=== PATIENT | female | born 1960 | race Caucasian/White ===

== ENCOUNTER 2022-01-09 09:37 | Inpatient (IN) | payer BC ==
[2022-01-03 16:58] LABS: BASOPHILS % (AUTO) 0.5 % (0-1); EOSINOPHILS # (AUTO) 0.1 X10'3 (0-0.9); EOSINOPHILS % (AUTO) 1.6 % (0-6); LYMPHOCYTES # (AUTO) 1.9 X10'3 (1.1-4.8); LYMPHOCYTES % (AUTO) 26.5 % (21-51); MEAN CORPUSCULAR HEMOGLOBIN 30.6 PG (27.0-31.0); MEAN CORPUSCULAR HGB CONC 33.9 g/dL (33.0-36.5); MEAN CORPUSCULAR VOLUME 90.4 FL (78-98); MEAN PLATELET VOLUME 8.7 FL (7.4-10.4); MONOCYTES # (AUTO) 0.8 X10'3 (0-0.9); MONOCYTES % (AUTO) 10.4 % (2-12); NEUTROPHILS # (AUTO) 4.5 X10'3 (1.8-7.7); PRE OP HEMATOCRIT 38.5 % (35.0-45.0); PRE OP HEMOGLOBIN 13.1 g/dL (12.0-16.0); PRE OP PLATELET COUNT 323 X10'3 (140-440); RED BLOOD COUNT 4.26 X10'6 (4.20-5.60)
[2022-01-03 17:21] LABS: ALBUMIN 3.5 G/DL (3.4-5.0); ALKALINE PHOSPHATASE 68 IU/L (46-116); BLOOD UREA NITROGEN 24 MG/DL (7-18); BUN/CREATININE RATIO 30.4 (6.6-38.0); CALCIUM 9.1 MG/DL (8.5-10.1); CHLORIDE 107 MMOL/L (99-107); CREATININE 0.79 MG/DL (0.40-0.90); PRE OP ALT 21 U/L (30-65); PRE OP ANION GAP 7 (8-16); PRE OP AST 18 U/L (10-37); PRE OP BILIRUB, TOTAL 0.7 MG/DL (0.0-1.0); PRE OP GLUCOSE 89 MG/DL (70-104); PRE OP POTASSIUM 3.8 MMOL/L (3.4-5.1); PRE OP SODIUM 142 MMOL/L (135-145); TOTAL CARBON DIOXIDE 28.1 MMOL/L (24-32); eGFR 74 ML/MIN
[~2022-01-09] VITALS: Ht 154.9 cm; Wt 82.4 kg
[2022-01-09] VITALS (10 sets, daily range): BP systolic 95–114; BP diastolic 51–71
[2022-01-09] MEDS: ascorbic acid 500mg tablet PO SCH ×2 (08:00→21:45)
[2022-01-09] MEDS: multivitamins, therapeutics tablet PO SCH (08:00)
[2022-01-09] MEDS: montelukast 10mg tablet PO SCH (08:00)
[2022-01-09] MEDS: gabapentin 300mg capsule PO SCH ×3 (08:00→21:44)
[2022-01-09] MEDS: levoTHYROXINE 100mcg tablet PO SCH (08:00)
[2022-01-09] MEDS: aspirin 325mg tablet PO SCH (08:30)
[~2022-01-09 09:37] MED LIST: BIOT5000 PO; DOCUMENT DATE & TIME OF BETA-BLOCKER PO ONE; HYDROmorphone 1 mg/ml syringe IV PRN; HYDROmorphone inj. 0.5 MG/0.5 ML DISP.SYRIN IV PRN; LEVO100T9 PO; METO-395 PO; MONT-40 PO; ROPIVAcaine 0.5% (5mg/ml) 30ml vial ONE; [UNRECOGNIZED DRUG - OTHER]; [UNRECOGNIZED DRUG - REMARK]; acetaminophen 325mg tablet PO PRN; bisacodyl 10mg suppository rectal RC PRN; clindamycin-Cleocin 900mg/D5W 50 ML IV ONE; cloNIDine hcl/PF 100mcg/ml inj ONE; diphenhydrAMINE 25mg capsule PO PRN; epiNEPHrine 1 mg/ml inj ONE; famotidine 20mg tablet PO ONE; ketorolac trometh. 30mg/ml inj. ONE; magnesium hydroxide 30ml (MOM) UD suspension PO PRN; naloxone 0.4 mg/ml inj IV PRN; ondansetron/PF 4mg/2ml inj IV PRN; oxyCODONE SR 10mg (sust. release) tab -2 tabs (20mg) PO ONE; oxyCODONE/APAP 10/325mg tablet PO PRN; ringers solution, lacted 1,000 ML IV SCH; tranexamic acid 100mg/ml inj. ONE; vancomycin 1,000mg inj ONE; vancomycin 1,500 MG in NS 300ml IV soln IV ONE
--- NOTE | 2022-01-09 10:30 | NUR ---
CSM: PULSES PRESENT AND MARKED. PATIENT STATES SHE READ THE PAMPHLET AND WATCHED THE VIDEO. SHE STATES SHE DOES NOT KNOW ABOUT THE MUPIROCIN OINTMENT. EDUCATED PATIENT ON THE USE OF THE INCENTIVE SPIROMETER AND ITS IMPORTANCE.
[2022-01-09] MEDS ORDERED: morphine 2 MG/ML inj. syringe IV PRN (12:40)
[2022-01-09] MEDS ORDERED: proCHLORperazine 10 MG/2 ml inj IV PRN (12:40)
[2022-01-09] MEDS ORDERED: ondansetron/PF 4mg/2ml inj IV PRN (12:40)
[2022-01-09] MEDS ORDERED: ringers solution, lacted 1,000 ML IV SCH (12:40)
[2022-01-09] MEDS ORDERED: ROPIVAcaine 0.2% (10 MG/5 ML) BOLUS INJECTION ADDCANAL PRN (12:40)
[2022-01-09] MEDS ORDERED: ROPIVAcaine 0.2%/PF PUMP/bolus 545 ML ADDCANAL SCH (12:40)
[2022-01-09] MEDS ORDERED: morphine 4 MG/ML inj SYRINge IV PRN (12:40)
[2022-01-09] MEDS ORDERED: meperidine/PF 25mg/ml syringe IV PRN ×3 (12:40)
[2022-01-09] MEDS ORDERED: ROPIVAcaine 0.5% (5mg/ml) 30ml vial ONE (13:53)
[2022-01-09] MEDS ORDERED: fentaNYL/PF 50MCG/1 ML 2ML syringe ONE (13:55)
[2022-01-09] MEDS ORDERED: MIDAZolam 1 MG/ML 5ML VIAL ONE (13:55)
[2022-01-09] MEDS: potassium cl 20mEq in 1/2 NS 1,000 ML IV SCH ×3 (15:00→22:09)
--- NOTE | 2022-01-09 16:10 | NUR ---
Received from OR via , accompanied by Anesthesiologist and report given by Anesthesiolgist. PATIENT WAKING UP, DENIES PAIN, V/S WNL, SCD ON 20G PIV TO LUE, NEUROVASCULAR CHECKS INTACT. LEFT KNEE WRAP LYSSA DRESSING CDI WITH COLD PACK. ONQ AT 2ML/HR LEFT KNEE
--- NOTE | 2022-01-09 16:40 | NUR ---
Patient in room ORTHO 4012B. I have received report from CAROLINA HAGEN FROM [facility] and had the opportunity to ask questions and assume patient care.
--- NOTE | 2022-01-09 17:00 | NUR ---
PATIENT WAKING UP, DENIES PAIN, V/S WNL, SCD ON 20G PIV TO LUE, NEUROVASCULAR CHECKS INTACT. LEFT KNEE WRAP LYSSA DRESSING CDI WITH COLD PACK. ONQ AT 2ML/HR LEFT KNEE PATIENT TAKEN TO 4012B WITH ALL BELONGINGS AND HOOKED UP TO MONITORS IN ROOM AND REPORT GIVEN TO RN WHO HAS TAKEN OVER PATIENT CARE.
--- NOTE | 2022-01-09 18:10 | NUR ---
Patient in room ORTHO 4012. I have received report from Marni Olson and had the opportunity to ask questions and assume patient care. Addendum: 01/09/22 at 2332 by Ansley Rosenberg RN Amended: Links added.
--- NOTE | 2022-01-09 18:50 | NUR ---
Patient in room ORTHO 4012. I have received report from Marni Olson and had the opportunity to ask questions and assume patient care.
--- NOTE | 2022-01-09 18:50 | NUR ---
Pt. awake A & O at this time with c/o pain of 8/10 on the pain scale; medicated as ordered. Absent seizure episode noted without injury- pt. back to normal self and was able to take his medicine without incident. Bed rails padded for safety and bed in low position. Call light within reach. Addendum: 01/10/22 at 0642 by Ansley Rosenberg RN Amended: Links added. Addendum: 01/10/22 at 0643 by Ansley Rosenberg RN Omit the note-Wrong pt.
--- NOTE | 2022-01-09 18:58 | NUR ---
Problems reprioritized. Patient report given, questions answered & plan of care reviewed with CAROLINA ESCUDERO.
[2022-01-09] MEDS ORDERED: VANCOMYCIN 1,500MG inj. 1,500 MG in normal saline 250ml IV soln 300 ML IV ONE (20:00)
[2022-01-09] MEDS ORDERED: sennosides 8.6mg tablet PO SCH (21:00)
--- NOTE | 2022-01-09 21:35 | NUR ---
Pt. awake A & O with c/o minimal pain of 4/10 on the pain scale level; encouraged pt. to press the ON/ Q button which pt. was able to demonstrated understanding. Lt knee drsg CDI and CMS present at this time.Call light within reach and bed in low position. Addendum: 01/10/22 at 0657 by Ansley Rosenberg RN Amended: Links added.
[2022-01-09] MEDS: oxyCODONE/APAP 10/325mg tablet PO PRN (22:05)
[2022-01-10] VITALS: BP 101/53
[2022-01-10] MEDS: cefazolin/dext.iso 2gm/100ml 100 ML IV SCH ×2 (00:47→00:51)
[2022-01-10 02:00] VITALS: BP 95/53
[2022-01-10 06:00] VITALS: BP 98/51
--- NOTE | 2022-01-10 06:00 | NUR ---
Problems reprioritized. Patient report given, questions answered & plan of care reviewed with Marni Morales RN. Addendum: 01/10/22 at 0703 by Ansley Rosenberg RN Amended: Links added.
[2022-01-10 06:29] LABS: BASOPHILS % (AUTO) 0.3 % (0-1); EOSINOPHILS % (AUTO) 0 % (0-6); HEMATOCRIT 32.8 % (35.0-45.0); LYMPHOCYTES # (AUTO) 1.2 X10'3 (1.1-4.8); LYMPHOCYTES % (AUTO) 13.4 % (21-51); MEAN CORPUSCULAR HEMOGLOBIN 30.1 PG (27.0-31.0); MEAN CORPUSCULAR HGB CONC 33.4 g/dL (33.0-36.5); MEAN CORPUSCULAR VOLUME 90.1 FL (78-98); MEAN PLATELET VOLUME 9.5 FL (7.4-10.4); MONOCYTES # (AUTO) 0.8 X10'3 (0-0.9); MONOCYTES % (AUTO) 9.1 % (2-12); NEUTROPHILS % (AUTO) 77.2 % (42-75); PLATELET COUNT 247 X10'3 (140-440); RED BLOOD COUNT 3.64 X10'6 (4.20-5.60); RED CELL DISTRIBUTION WIDTH 13.7 % (11.5-14.5)
--- NOTE | 2022-01-10 06:29 | NUR ---
Patient in room ORTHO 4012. I have received report from Ansley FIGUEROA and had the opportunity to ask questions and assume patient care.
[2022-01-10 06:54] LABS: ANION GAP 9 (8-16); CHLORIDE 108 MMOL/L (99-107); POTASSIUM 4.4 MMOL/L (3.5-5.1); SODIUM 143 MMOL/L (135-145); TOTAL CARBON DIOXIDE 26.3 MMOL/L (24-32)
[2022-01-10] MEDS: oxyCODONE/APAP 10/325mg tablet PO PRN ×3 (06:55→14:21)
[2022-01-10] MEDS: potassium cl 20mEq in 1/2 NS 1,000 ML IV SCH ×2 (07:00→15:00)
[2022-01-10] MEDS: montelukast 10mg tablet PO SCH (07:05)
[2022-01-10] MEDS: ascorbic acid 500mg tablet PO SCH (07:06)
[2022-01-10] MEDS: multivitamins, therapeutics tablet PO SCH (07:06)
[2022-01-10] MEDS: levoTHYROXINE 100mcg tablet PO SCH (07:06)
[2022-01-10] MEDS: gabapentin 300mg capsule PO SCH ×2 (07:06→13:12)
--- NOTE | 2022-01-10 07:46 | NUR ---
Spoke to MD regarding aspirin as patient has had bariatric surgery and is not supposed to take aspirin and is on lovenox at home, patient is to get lovenox. MD to put in order
[2022-01-10] MEDS ORDERED: celeCOXIB 100mg capsule PO SCH ×2 (08:00→20:00)
[2022-01-10] MEDS ORDERED: metoprolol succinate 25mg (24-HOUR) SR. Tablet PO SCH (08:00)
[2022-01-10] MEDS: aspirin 325mg tablet PO SCH (08:30)
--- NOTE | 2022-01-10 09:39 | NUR ---
I xiao RN agree with CORBY Aguilera
[2022-01-10 10:00] VITALS: BP 101/58
--- NOTE | 2022-01-10 12:13 | NUR ---
Noted pt s/p left TKA. Written protein education with RD contact information placed in patient's chart. Pt currently eating well, documented with 75-100% PO intake on regular diet. Will remain available. Addendum: 01/10/22 at [address] Amended: Links added.
--- NOTE | 2022-01-10 13:34 | NUR ---
PATIENT AMBULATING WITH PT TO DO STAIRS
--- NOTE | 2022-01-10 13:34 | NUR ---
ORDERS WERE NOT PUT IN FOR LOVENOX DUE TO PATIENTS CONFLICT WITH ASPIRIN, CALLED MD FOR ORDERS. NO ANSWER, MESSAGE WAS LEFT.
[2022-01-10 14:00] VITALS: BP 93/52
[2022-01-10] MEDS ORDERED: enoxaparin 40mg/0.4ml syringe SUBCUT SCH (14:15)
--- NOTE | 2022-01-10 16:20 | NUR ---
Patient dc home with spouse. Discharge information was discussed with patient who verbalize understanding and was assisted to personal vehicle with belongings.
[2022-01-10] MEDS ORDERED: TRANEXAMIC ACID IV ONE (18:47)
[2022-01-10] MEDS ORDERED: NORMAL SALINE IV ONE (18:47)
== END 2022-01-10 15:45 | disposition home or self-care (01) | DRG 470 ==
LOC: PAS 09:37 → ORTHO 4S 09:38 → UNDOADMIN 17:22 → ORTHO 4S 17:22
PROVIDERS: ADMIT Orthopaedic Surgery; ATTEND Orthopaedic Surgery
PROC: 3E0T3BZ Introduction of Anesthetic Agent into Peripheral Nerves and Plexi, Percutaneous Approach (ICD-10-PCS; 2022-01-09)
PROC: 0SRD0J9 Replacement of Left Knee Joint with Synthetic Substitute, Cemented, Open Approach (ICD-10-PCS; principal; 2022-01-09 13:43)
DX: M17.12 Unilateral primary osteoarthritis, left knee (principal); Z20.822 Contact with and (suspected) exposure to COVID-19
CPT/HCPCS: 36415; 73560; 80051; 80053; 82948; 84443; 85025; 86885; 86900; 86901; 87081; 93005; 97116; 97161; 97530; A4215; A4615; A6449; A7000; C1713; C1776; G0378; J0171; J0690; J0735; J1170; J1650; J1885; J2250; J2795; J3010; J3370; J3480; J3490; J7040; J7050; J7120